=== PATIENT | female | born 1970 | race Hispanic/Latino ===

== ENCOUNTER → 2023-04-14 | Outpatient (CLI) | payer BC | END | disposition home or self-care (01) | LOC: SHCH 14:30 | PROVIDERS: ATTEND Internal Medicine Cardiovascular Disease | DX: I35.8 Other nonrheumatic aortic valve disorders (principal) | CPT/HCPCS: 93306 ==

== ENCOUNTER 2024-08-25 08:08 | Day surgery (SDC) | payer BC ==
[2024-08-23 12:28] LABS: BASOPHILS # (AUTO) 0.05 K/uL (0.00-0.20); BASOPHILS % (AUTO) 0.6 % (0.0-5.0); EOSINOPHILS # (AUTO) 0.16 K/uL (0.00-0.70); HEMATOCRIT 42.6 % (36-48); IMMATURE GRANULOCYTE ABSOLUTE 0.02 K/uL (0-1); LYMPHOCYTES % (AUTO) 24.7 % (21.0-51.0); MEAN CORPUSCULAR HEMOGLOBIN 30.3 pg (27.0-33.0); MEAN CORPUSCULAR HGB CONC 34.3 g/dL (32.0-36.0); MEAN CORPUSCULAR VOLUME 88.4 fL (79-99); MONOCYTES # (AUTO) 0.6 K/uL (0.1-1.0); MONOCYTES % (AUTO) 7.5 % (3.0-13.0); NEUTROPHILS # (AUTO) 5.2 K/uL (1.8-7.7); PLATELET COUNT (AUTO) 222 K/uL (130-400); RED BLOOD CELL COUNT(AUTO) 4.82 MIL/uL (4.00-5.50); RED CELL DISTRIBUTION WIDTH 11.8 % (11.0-15.5)
[2024-08-23 12:51] LABS: INR 1.13 (0.85-1.15); PROTHROMBIN TIME 12.1 SEC (9.6-11.6)
[2024-08-23 12:52] LABS: PARTIAL THROMBOPLASTIN TIME 29.7 SEC (26.3-35.5)
[2024-08-23 13:01] LABS: CREATININE 0.6 mg/dL (0.5-1.0); POTASSIUM 3.5 mmol/L (3.5-5.1)
[2024-08-23 13:09] VITALS: BP 134/67; PULSE 80; RESP 16; TEMP 98
[~2024-08-25] VITALS: Ht 149.9 cm; Wt 75.4 kg
[2024-08-25] VITALS (18 sets, daily range): BP systolic 99–132; BP diastolic 49–74; PULSE 60–77; RESP 9–21; TEMP 97.4–208.2
[~2024-08-25 08:08] MED LIST: AMIT25TA9 PO; AMLO-257 PO; ASHWAGANDHA PO; ATOR10TA69 PO; CAYENNE PO; CINNAMON PO; ESTR1TAB17 PO; FAMO20TA8 PO; FLAXSEED OIL PO; HYDR12.54 PO; LOSA100T59 PO; MECL25TA39 PO; METO5TAB2 PO; MIRA50TA PO; MVI PO; OMEP40CA21 PO; PHEN-615 PO; PLEC3TAB2 PO; TIRZ5PEN SQ; TURMERIC PO
[2024-08-25] MEDS: ceFAZolin SODIUM 2 GM VIAL ONE (08:59)
[2024-08-25] MEDS: 0.9%NACL 1000ML 1,000 ML IV ONE (08:59)
[2024-08-25] MEDS ORDERED: ASPI-1197 PO (09:15)
[2024-08-25] MEDS ORDERED: magnesium malate PO (09:15)
[2024-08-25] MEDS ORDERED: MELA10TA2 PO (09:15)
[2024-08-25] MEDS ORDERED: CETI-89 PO (09:15)
[2024-08-25] MEDS ORDERED: proPOFol 10 MG/ML 20ML VIAL IV ONE (10:34)
[2024-08-25] MEDS ORDERED: SUCCINYLCHOLINE CHLORIDE 20 MG/ML 10 ML VIAL ONE (10:34)
[2024-08-25] MEDS ORDERED: FENTanyl CITRate PF 50 MCG/1 ML 2ML VIAL ONE (10:35)
[2024-08-25] MEDS ORDERED: rocuRONium bROMide 10MG/1ML 5ML VL ONE ×2 (10:35→11:34)
[2024-08-25] MEDS ORDERED: LIDOCAINE PF 100MG/5ML (2%) SYRINGE 5ML ONE (10:35)
[2024-08-25] MEDS ORDERED: MIDAZOLAM HCL 1 MG/ML 2ML VIAL ONE (10:35)
[2024-08-25] MEDS ORDERED: ondanSETRON 4MG INJ ONE (11:04)
[2024-08-25] MEDS: BUPIvacaine/PF 0.25% 30ML VIAL IJ ONE (11:15)
[2024-08-25] MEDS ORDERED: GLYCOPYRROLATE 0.2 MG/ML 5 ML VIAL ONE (13:03)
[2024-08-25] MEDS ORDERED: NEOSTIGMINE METHYLSULFATE 1MG/ML IV ONE (13:03)
--- NOTE | 2024-08-25 14:01 | OP ---
Operative Note: DATE OF PROCEDURE: 08/25/24 SURGEON: BEA MIKE MD FLIGHT ENGINEER PERFORMANCE QUALIFIED: [Please review operative record] ANESTHESIA: [General and local] ANESTHESIOLOGIST/COAL CHEMIST: [Please review operative record] PREOPERATIVE DIAGNOSIS: [Ventral hernia] POSTOPERATIVE DIAGNOSIS: [Ventral hernia] SYNOPSIS: [10 cm [place]-cheese ventral hernia containing incarcerated omentum, small bowel, large bowel. Contents successfully reduced, primarily repaired and reinforced with Ventralight ST mesh 10 x 15 cm] PROCEDURE: [Robotic assisted laparoscopic ventral hernia repair with mesh reinforcement Repair of serosal tear x2] ESTIMATED BLOOD LOSS: [30 cc] INDICATIONS: [Patient is a 54-year-old female with history of open hysterectomy with chronic periumbilical and pelvic pain. Found to have multiple hernias on imaging. Patient enrolled on our structural medical weight loss prior to undergoing final repair of the hernia. Recommendation for hernia repair with mesh was given. Risks, benefits, alternatives were discussed. All questions were answered. Patient agreed proceed with ventral hernia repair with mesh. DESCRIPTION OF PROCEDURE: [After appropriate consent was obtained, the patient was brought into the operating room placed in supine position on the operating table. SCDs were placed, preop antibiotics were given. Patient underwent induction of general anesthesia, endotracheal intubation. Patient was then prepped and draped in usual sterile fashion. Time-out was performed Through a left subcostal incision, Veress needle was inserted into the peritoneal cavity. Insufflation was allowed to 12 mmHg. Through a left flank incision, 8 mm trocar were inserted into the peritoneal cavity using Optiview. Veress needle and this vicinity were examined with no signs of injury. Rest of my trocars were all placed under direct visualization. The [employer] robot was docked. Upon evaluation of the abdominal wall, there was a midline defect with multiple hernias, [place] cheese pattern. These hernias contained portions of small bowel, large bowel, and omentum. No signs of strangulation. Contents were carefully reduced using a combination of sharp dissection and blunt dissection with occasional bipolar energy. Once successfully reduced, the hernia measure to 10 x 4 cm. The peritoneum was tripped on the edges of the hernia in order to create a good landing zone for the mesh to be sutured the place. Abdominal pressure was lowered to 6 mmHg. Using 0 V lock nonabsorbable suture, the defect was reapproximated in a running fashion. It was decided to use a ventral ST mesh 10 x 15cm in order to reinforce the defect. This mesh was sutured in place using 3-0 V lock absorbable suture in a running fashion . The bowel and small bowel were reassessed, there were couple of serosal tears which were reapproximated using 2-0 silk interrupted suture. Final inspection revealed adequate mesh placement, successful closure of hernia. No concerns for leakage, adequate hemostasis. Abdomen was allowed to deflate. Counts were correct at the end of the case. All instruments were removed. Incisions were closed with 4-0 Monocryl suture. Dermabond was applied over the incision. Patient tolerated the procedure well] BEA MIKE MD Aug 25, 2024 14:01
--- NOTE | 2024-08-25 14:07 | DS ---
Discharge Summary Assessment Patient is a 54-year-old female who was admitted from the outpatient setting for elective robotic assisted laparoscopic ventral hernia repair on 08/25/2024. No issues during the procedure. Patient tolerated the procedure well. No concerns at this time. Patient remains hemodynamically stable, afebrile. Abdomen is coleman ign, appropriately tender to palpation. Incisions are clean dry and intact. No Rebound or guarding. Binder in place Patient will be discharged from recovery once cleared by anesthesia. Patient to avoid lifting more than 20 lb for a month. She will advance diet as tolerated. Postop meds have been submitted to the patient's pharmacy. Patient has follow up in 7-10 days in clinic. Hospital Course See above BEA MIKE MD Aug 25, 2024 14:07
[2024-08-25] MEDS: MEPERIDINE-PF 25 MG/ML SYG ONE ×2 (14:41→14:52)
[2024-08-25] MEDS: acetaMINOPHEN 100 ML ONE (14:41)
== END 2024-08-25 15:50 | disposition home or self-care (01) ==
LOC: DAH 08:08
PROVIDERS: ATTEND Surgery
DX: K43.6 Other and unspecified ventral hernia with obstruction, without gangrene (principal); I10 Essential (primary) hypertension; E11.9 Type 2 diabetes mellitus without complications; K21.9 Gastro-esophageal reflux disease without esophagitis; E66.01 Morbid (severe) obesity due to excess calories; Z88.6 Allergy status to analgesic agent; Z88.8 Allergy status to other drugs, medicaments and biological substances; E78.5 Hyperlipidemia, unspecified; Z90.49 Acquired absence of other specified parts of digestive tract; Z90.710 Acquired absence of both cervix and uterus; Z68.35 Body mass index [BMI] 35.0-35.9, adult; Z79.01 Long term (current) use of anticoagulants; Z79.82 Long term (current) use of aspirin; Z79.899 Other long term (current) drug therapy
CPT/HCPCS: 49594; S2900; 36415; 80048; 82948; 85025; 85610; 85730; 86850; 86900; 86901; J0330; J2003; J2175; J2250; J2405; J2704; J2710; J3010; J3490; J7030; A4213; A4215; A4216; A4221; A4222; A4223; A4600; A4649; A4663; A6260; C1769; C1781; J0665; J0690